=== PATIENT | female | born 1950 | race Hispanic/Latino ===

== ENCOUNTER 2021-05-22 11:27 | Emergency (ER) | payer MEDICARE ==
[2021-05-22] VITALS (7 sets, daily range): BP systolic 104–141; BP diastolic 56–73
[2021-05-22] MEDS ORDERED: PROPOFOL 10 MG/ML 20ML VIAL IV ONE (13:53)
== END 2021-05-22 18:23 ==
LOC: EDH 11:27
DX: K94.23 Gastrostomy malfunction (principal); Z20.822 Contact with and (suspected) exposure to COVID-19; E11.9 Type 2 diabetes mellitus without complications; E78.00 Pure hypercholesterolemia, unspecified; E78.5 Hyperlipidemia, unspecified; G40.909 Epilepsy, unspecified, not intractable, without status epilepticus; I10 Essential (primary) hypertension; K21.9 Gastro-esophageal reflux disease without esophagitis; Z88.0 Allergy status to penicillin; Z86.73 Personal history of transient ischemic attack (TIA), and cerebral infarction without residual deficits
CPT/HCPCS: 43246; 87635; 99284; A4222; A4223; A4606; A4620; C9803; J2704